=== PATIENT | female | born 2000 | race African-American/Black ===

== ENCOUNTER 2023-09-13 08:45 | Emergency (ER) | payer OTHER ==
[~2023-09-13] VITALS: Ht 162.6 cm; Wt 78.0 kg
[2023-09-13 08:47] VITALS: O2SAT 100
[2023-09-13] MEDS ORDERED: FLUT9.9S16 BOTHNSTRLS (10:31)
[2023-09-13] MEDS ORDERED: IBUP-2030 MT (10:31)
[2023-09-13] MEDS ORDERED: ALBU6.7H15 INH (10:31)
[2023-09-13] MEDS ORDERED: CLAR10 MT (10:31)
[2023-09-13] MEDS ORDERED: AZIT250T12 MT (10:31)
[2023-09-13] MEDS ORDERED: OLOP2.5D12 EACHEYE (10:31)
[2023-09-13 10:42] VITALS: BP 127/74; PULSE 80; RESP 16; TEMP 97.7
== END 2023-09-13 11:31 | disposition home or self-care (01) ==
LOC: ER 08:45
DX: R05.9 Cough, unspecified (principal); J02.9 Acute pharyngitis, unspecified
CPT/HCPCS: 99283